=== PATIENT | female | born 1975 | race Caucasian/White ===

== ENCOUNTER → 2016-06-13 | Outpatient (CLI) | payer BC | LOC: KOH-I 10:00 | DX: Z13.820 Encounter for screening for osteoporosis (principal); M25.559 Pain in unspecified hip; M79.671 Pain in right foot; M79.672 Pain in left foot; S92.901A Unspecified fracture of right foot, initial encounter for closed fracture | CPT/HCPCS: 77080 ==

== ENCOUNTER → 2021-04-20 | Outpatient (CLI) | payer BC ==
[~2021-04-20] MED LIST: ATENOLOL25 MG PO; BIOTIN1 MG PO; COLACE100 MG PO; ELIQUIS2.5 MG PO; FENOFIBRIC ACI135 MG PO; GLYCOPYRROLATE1 MG PO; HYDROCHLOROTH12.5 MG PO; KLONOPIN TAB 00.5 MG PO; LORTAB 7.5-3251 EACH PO; MELOXICAM15 MG PO; MOBIC15 MG PO; PERCOCET 5-3251 EACH PO; TENORMIN 25 MG25 MG PO; TOPAMAX50 MG PO; TOPIRAMATE50 MG PO; ULTRAM50 MG PO; VENLAFAXINE H37.5 MG PO; VENLAFAXINE HCL75 M2 PO
== END ==
LOC: EXRD 13:07
DX: E04.2 Nontoxic multinodular goiter (principal)
CPT/HCPCS: 76536